=== PATIENT | female | born 1955 | race Caucasian/White ===

== ENCOUNTER 2021-08-13 05:30 | Day surgery (SDC) | payer OTHER ==
[~2021-08-13] VITALS: Ht 157.5 cm; Wt 62.1 kg
[2021-08-13] MEDS ORDERED: HYDROmorphone 1 MG/ML INJ. CARTRIDGE IVP PRN ×2 (08:45)
[2021-08-13] MEDS ORDERED: ONDANSETRON HCL 4 MG/2 ML VIAL IVP PRN ×2 (08:45→09:00)
[2021-08-13] MEDS ORDERED: METOCLOPRAMIDE HCL 10 MG/2 ML VIAL IVP PRN (08:45)
[2021-08-13] MEDS ORDERED: NS 1000 ML IV.SOLN IV ONE (08:55)
[2021-08-13] MEDS ORDERED: PROPOFOL 200MG/ 20ML VIAL (DIPRIVAN) IV ONE (08:55)
[2021-08-13] MEDS ORDERED: ONDANSETRON HCL 4 MG/2 ML VIAL ONE (08:55)
[2021-08-13] MEDS ORDERED: fentaNYL CITRATE/PF 100 MCG/2 ML AMP ONE (08:55)
[2021-08-13] MEDS ORDERED: KETOROLAC TROMETHAMINE 30 MG VIAL ONE (08:55)
[2021-08-13] MEDS ORDERED: DESFLURANE 15 MIN GAS INH ONE (08:55)
[2021-08-13] MEDS ORDERED: NS IRRIG SOLN 1000 ML IR ONE (08:55)
[2021-08-13] MEDS ORDERED: LR 1,000 ML IV.SOLN IV ONE (08:55)
[2021-08-13] MEDS ORDERED: DEXAMETHASONE SOD PHOSPHATE 4 MG/ML VIAL ONE (08:55)
[2021-08-13] MEDS ORDERED: HYDROcodone/ACETAMIN 5-325 MG TAB (NORCO/ VICODIN) PO PRN (09:00)
[2021-08-13] MEDS ORDERED: OXYCODONE/ACETAMINOPHEN 5-325 TABLET PO PRN ×2 (09:00)
[2021-08-13 09:50] VITALS: BP_SYST 115
== END 2021-08-13 10:35 | disposition home or self-care (01) ==
LOC: SMU 05:30 → SDS 05:30
PROVIDERS: ATTEND Specialist
DX: N85.2 Hypertrophy of uterus (principal); R10.2 Pelvic and perineal pain; N85.8 Other specified noninflammatory disorders of uterus; M35.00 Sjogren syndrome, unspecified; Z20.822 Contact with and (suspected) exposure to COVID-19; Z79.899 Other long term (current) drug therapy
CPT/HCPCS: 36415 ×2; 58558; 87426; 87635; 88305; J1100; J1885; J2405; J2704; J3010; J7030; J7120